=== PATIENT | female | born 1985 | race Caucasian/White ===

== ENCOUNTER 2023-03-20 11:10 | Emergency (ER) | payer OTHER ==
[2023-03-20 11:29] VITALS: BP 130/78; O2SAT 98
--- NOTE | 2023-03-20 11:33 | ED Physician Documentation ---
PD HPI LOWER EXT INJURY - Stated complaint Stated Complaint: RT FOOT INJURY - Chief complaint Chief Complaint: Trauma Ext - History obtained from History obtained from: Patient - History of Present Illness PD HPI LOW EXT INJURY LOCATION: Right, Foot Type of injury: Blunt / blow Where injury occurred: Home - Additional information Additional information: 37 yo F presents w/ pain to the top of the right foot after dropping a metal folding table on it accidentally last night. Can walk but has pain. Notes some s welling. No other injuries. Tried otc medication w/o relief, no other alleviating or exacerbating factors. Review of Systems Constitutional: reports: Reviewed and negative Cardiac: reports: Reviewed and negative Respiratory: reports: Reviewed and negative GI: reports: Reviewed and negative Skin: reports: Reviewed and negative Musculoskeletal: reports: Extremity pain, Extremity swelling, Pain with weight bearing. denies: Joint pain PD PAST MEDICAL HISTORY - Past Medical History Past Medical History: No - Allergies Allergies/Adverse Reactions: Allergies Allergy/AdvReac Type Severity Reaction Status Date / Time amoxicillin [From Augmentin] Allergy Hives Verified 03/20/23 11:20 clavulanic acid Allergy Hives Verified 03/20/23 11:20 [From Augmentin] PD ED PE NORMAL - Vitals Vital signs reviewed: Yes - General General: Alert and oriented X 3, No acute distress, Well developed/nourished - HEENT HEENT: Atraumatic, Moist mucous membranes - Derm Derm: Normal color, Warm and dry, No rash - Extremities Extremities: Other (tender across dorsum of the right foot w/ mild swelling and contusion, no erythema, no obvious deformity) Results - Vitals Vitals: Vital Signs - 24 hr 03/20/23 11:21 Temperature 37 C Heart Rate 102 H Respiratory 16 Rate Blood Pressure 130/78 O2 Saturation 98 Oxygen O2 Source Room air - Rads (name of study) No standard instances Relevant Findings:: Final report received PD Medical Decision Making - ED course Complexity details: reviewed results, re-evaluated patient, considered differential, d/w patient ED course: 37-year-old female presented with right foot pain after dropping a table on it yesterday as described in HPI. She has a mild bruising and mild swelling across the dorsum of the foot but no broken skin, no skin injuries, no signs of infection. We did obtain x-ray to evaluate for possible fracture and this was negative. This is likely a soft tissue contusion and patient was advised to utilize cool compress, ibuprofen and Tylenol for pain and keep elevated whenever possible for the next few days. Patient should experience improvement in her symptoms in the next several days. Departure - Departure Disposition: 01 Home, Self Care Clinical Impression: Contusion of right foot Qualifiers: Encounter type: initial encounter Qualified Code(s): S90.31XA - Contusion of right foot, initial encounter Condition: Good Instructions: ED Contusion Foot Comments: Your xray does not show any broken bones. You do have a contusion, or deep bruise, to the foot and this can cause some pain. Please use cool compress, elevate, and you can take tylenol and ibuprofen as needed for pain. Pain should improve over the next few days. Forms: PCP List
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
== END 2023-03-20 12:21 | disposition home or self-care (01) ==
LOC: ED 11:10
DX: S90.31XA Contusion of right foot, initial encounter (principal); W20.8XXA Other cause of strike by thrown, projected or falling object, initial encounter
CPT/HCPCS: 99283

== ENCOUNTER 2023-04-26 14:14 | Emergency (ER) | payer OTHER ==
[2023-04-26 14:49] VITALS: BP 157/103; O2SAT 100
--- NOTE | 2023-04-26 15:09 | XRAY Report ---
PROCEDURE: Ankle 3 View LT INDICATIONS: Trauma TECHNIQUE: 3 views of the ankle were acquired. COMPARISON: None. FINDINGS: Bones: No fractures or dislocations. Ankle mortise is normally aligned on nonweightbearing view. N o suspicious bony lesions. Soft tissues: No tibiotalar joint effusion. Achilles tendon appears normal. IMPRESSION: No acute bony abnormality. Reviewed by: Nahomi Fraser MD on 04/26/2023 3:08 PM [facility] Approved by: Nahomi Fraser MD on 04/26/2023 3:08 PM PST Station ID: [id number]
--- NOTE | 2023-04-26 16:18 | ED Physician Documentation ---
PD HPI LOWER EXT INJURY - Stated complaint Stated Complaint: L ANKLE INJ - Chief complaint Chief Complaint: Trauma Ext - History obtained from History obtained from: Patient - Additional information Additional information: Patient is a 37-year-old female with no significant prior medical history presenting for evaluation of left ankle injury that occurred yesterday morning. Patient was putting up lights around her house. As she stepped off the curb onto the lawn and rolled her left ankle. She denies hitting her head or injuries elsewhere. She has been trying icing it and Tylenol without any s ignificant improvement but has been able to continue to ambulate although with pain. 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 - Present Medications Home Medications: Ambulatory Orders Medication Instructions Recorded Confirmed Loryna 04/26/23 - Allergies Allergies/Adverse Reactions: Allergies Allergy/AdvReac Type Severity Reaction Status Date / Time amoxicillin [From Augmentin] Allergy Hives Verified 04/26/23 14:42 clavulanic acid Allergy Hives Verified 04/26/23 14:42 [From Augmentin] - Social History Does the pt smoke?: No Smoking Status: Never smoker Does the pt drink ETOH?: Yes Does the pt have substance abuse?: No - Immunizations Immunizations are current?: Yes PD ED PE NORMAL - General General: Alert and oriented X 3, No acute distress, Well developed/nourished - HEENT HEENT: Atraumatic - Cardiac Cardiac: Strong equal pulses - Respiratory Respiratory: No respiratory distress - Extremities Extremities: Other (Tenderness and swelling to the lateral malleoli of the left ankle, distal pulses intact, no tenderness over the foot or more proximally in the lower extremity) Results - Vitals Vitals: Vital Signs - 24 hr 04/26/23 14:37 Temperature 36.6 C Heart Rate 86 Respiratory 15 Rate Blood Pressure 157/103 H O2 Saturation 100 Oxygen O2 Source Room air PD Medical Decision Making - ED course Complexity details: reviewed results, d/w patient ED course: Patient with left ankle injury. Mild swelling to lateral left ankle with no other deformities. Distal pulses intact. No tenderness elsewhere. X-ray was obtained which I reviewed I see no fracture or dislocation. Likely ankle sprain and will treat with Aircast and crutches as well as continued supportive care. Patient counseled on need for close follow-up if symptoms or not improving. Departure - Departure Disposition: 01 Home, Self Care Clinical Impression: Left ankle sprain Condition: Stable Instructions: ED Sprain Ankle W X Ray Follow-Up: ANJALI Castro [Provider Group] Comments: Your x-ray does not show a broken bone like a fracture or dislocation. You likely have an ankle sprain causing your pain. We have given you an Aircast and crutches and would recommend you not put weight on the foot until the ankle is feeling better. Continue with ice, anti-inflammatory such as acetaminophen and ibuprofen as well as elevation. I would recommend follow-up with your primary care provider if your symptoms or not improving over the course of the next week. Forms: PCP List, Activity restrictions Discharge Date/Time: 04/26/23 16:28
== END 2023-04-26 16:28 | disposition home or self-care (01) ==
LOC: ED 14:14
DX: S93.402A Sprain of unspecified ligament of left ankle, initial encounter (principal); X50.1XXA Overexertion from prolonged static or awkward postures, initial encounter; Y93.89 Activity, other specified; Y92.008 Other place in unspecified non-institutional (private) residence as the place of occurrence of the external cause
CPT/HCPCS: 99283

== ENCOUNTER 2023-09-28 18:00 | Emergency (ER) | payer OTHER ==
[2023-09-28 18:26] VITALS: O2SAT 100
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
[2023-09-28] MEDS: IBUPROFEN 400 MG TABLET PO STA (20:17)
[2023-09-28] MEDS: ACETAMINOPHEN 500 MG TABLET PO SCH (20:17)
[2023-09-28 20:50] VITALS: BP 126/104
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
== END 2023-09-28 21:07 | disposition home or self-care (01) ==
LOC: ED 18:00
DX: S40.022A Contusion of left upper arm, initial encounter (principal); V43.52XA Car driver injured in collision with other type car in traffic accident, initial encounter; Y92.410 Unspecified street and highway as the place of occurrence of the external cause
CPT/HCPCS: 73060; 99283; A9270

== ENCOUNTER 2023-11-16 16:30 | Emergency (ER) | payer OTHER ==
[2023-11-16 16:49] VITALS: BP 136/79; O2SAT 100
[2023-11-16] MEDS: TETANUS/DIPHTHERIA/PERTUSSIS 0.5 ML SYRINGE IM ONE (17:11)
--- NOTE | 2023-11-16 18:38 | ED Physician Documentation ---
History of Present Illness - Stated complaint Stated Complaint: LT HAND LAC - Chief complaint Chief Complaint: Ext Problem - Additonal information Additional information: 38-year-old female presents emergency department for laceration to the left hand. Patient was cutting something in the kitchen using kitchen knife and actually cut into the left thumb. Bleeding well-controlled full range of motion no blood thinners up-to-date with tetanus shot. 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 - Present Medications Home Medications: Ambulatory Orders Medication Instructions Recorded Confirmed Loryna 1 tab ORAL DAILY 04/26/23 09/28/23 - Allergies Allergies/Adverse Reactions: Allergies Allergy/AdvReac Type Severity Reaction Status Date / Time amoxicillin [From Augmentin] Allergy Hives Verified 11/16/23 16:41 clavulanic acid Allergy Hives Verified 11/16/23 16:41 [From Augmentin] - Social History Does the pt smoke?: No Smoking Status: Never smoker Does the pt drink ETOH?: No Does the pt have substance abuse?: No - Immunizations Immunizations are current?: No - POLST Patient has POLST: No PD ED PE NORMAL - Vitals Vital signs reviewed: Yes - General General: Alert and oriented X 3, No acute distress, Well developed/nourished - Free text exam Free text exam: Left thumb: full ROM, 2cm superfical laceration, tendon intact, bleeding controlled, CMS intact Results - Vitals Vitals: Vital Signs - 24 hr 11/16/23 16:37 Temperature 36.5 C Heart Rate 100 Respiratory 16 Rate Blood Pressure 136/79 H O2 Saturation 100 Oxygen O2 Source Room air Procedures - Laceration (location) left thumb laceration Length in cm: 2 (Left ulnar aspect at the base of the thumb above MCP) Wound type: Linear, Clean Neurovascular status: Sensory intact, Motor intact, Vascular intact Tendon involvement: Tendon intact Anesthesia: Lidocaine 1% Wound preparation: Irrigated copiously NS, Wound explored, To the base Skin layer closure: Dermabond, Steri strips (3) Other: Patient tolerated well, No complications, Neurovascular intact, Tetanus UTD PD Medical Decision Making - ED course ED course: Wound inspected under direct bright light with good visualization. Area with linear laceration across soft tissue through adipose without exposure of muscle belly or tendon. No overt foreign body. Area hemostatic. Neurovascular exam congruent with above. Area extensively irrigated with sterile normal saline under pressure. Laceration repaired in simple fashion with dermabond and steri strips (please see procedure note for further details). Patient tolerated procedure well and neurovascular exam intact and unchanged post repair with intact distal pulses and cap refill. Cautious return precautions discussed w/ full understanding. Wound care discussed. Prompt follow up with primary care physician discussed and return Precautions given. Departure - Departure Disposition: Home, Self Care Clinical Impression: Laceration of left thumb Qualifiers: Encounter type: initial encounter Damage to nail status: without damage Foreign body presence: without foreign body Qualified Code(s): S61.012A - Laceration without foreign body of left thumb without damage to nail, initial encounter Instructions: ED Laceration All Comments: Thank you for trusting us with your care. We have placed 3 Steri-Strips on your left thumb keep this dry for as long as possible to help keep the Steri-Strips on for at least 7 to 10 days. You can remove the Steri-Strips on your own keep an eye out for signs and symptoms of infection as we already discussed redness swelling drainage that is yellow-green or white that collects under glue. If this happens please present back to the emergency department. You can take Tylenol ibuprofen for any pain or discomfort. Forms: PCP List Discharge Date/Time: 11/16/23 18:51
[2023-11-16] MEDS: ACETAMINOPHEN 325 MG TABLET PO STA (18:49)
== END 2023-11-16 18:51 | disposition home or self-care (01) ==
LOC: ED 16:30
DX: S61.012A Laceration without foreign body of left thumb without damage to nail, initial encounter (principal); W26.0XXA Contact with knife, initial encounter; Y93.G1 Activity, food preparation and clean up; Y92.000 Kitchen of unspecified non-institutional (private) residence as the place of occurrence of the external cause; Z23 Encounter for immunization
CPT/HCPCS: 12001; 90471; 90715; 99283; A9270